=== PATIENT | female | born 1970 | race Asian ===

== ENCOUNTER 2019-02-01 10:53 | Inpatient (IN) | payer OTHER ==
[2019-02-01 11:34] LABS: ADD MAN DIFF? NO
[2019-02-01 11:37] LABS: WHITE BLOOD COUNT 4.6 10^3/ul (4.8-10.8)
[2019-02-01 11:37] LABS: BASOPHILS % 0.2 % (0.0-2.0); EOSINOPHILS # 0.2 10^3/ul (0.0-0.5); EOSINOPHILS % 3.3 % (0.0-7.0); HEMATOCRIT 42.7 % (37.0-47.0); HEMOGLOBIN 14.1 g/dl (12.0-16.0); LYMPHOCYTES % 44.1 % (15.0-51.0); MEAN CORPUSCULAR HEMOGLOBIN 29.4 pg (29.0-33.0); MEAN PLATELET VOLUME 10.4 fl (7.4-10.4); MONOCYTE # 0.2 10^3/ul (0.3-0.9); MONOCYTES % 4.8 % (0.0-11.0); NEUTROPHIL # 2.2 10^3/ul (1.6-7.5); NEUTROPHILS % 47.6 % (39.0-77.0); PLATELET COUNT 230 10^3/UL (140-415); RED CELL DISTRIBUTION WIDTH 12.3 % (11.5-14.5)
[2019-02-01] MEDS ORDERED: ISOSULFAN BLUE 1% 5 ML INJ SC (11:53)
[2019-02-01 11:55] LABS: INR 0.96; PROTIME 12.9 Sec (11.9-14.9)
[2019-02-01 11:56] LABS: ALANINE AMINOTRANSFERASE 16 IU/L (13-69); ALBUMIN 4.7 g/dl (3.3-4.9); ALBUMIN/GLOBULIN RATIO 1.11; ALKALINE PHOSPHATASE 56 IU/L (42-121); ANION GAP 9 (5-13); ASPARTATE AMINO TRANSFERASE 26 IU/L (15-46); BILIRUBIN,INDIRECT 0.5 mg/dl (0-1.1); BILIRUBIN,TOTAL 0.5 mg/dl (0.2-1.3); BLOOD UREA NITROGEN 13 mg/dl (7-20); CALCIUM 9.6 mg/dl (8.4-10.2); CARBON DIOXIDE 30 mmol/L (21-31); CHLORIDE 104 mmol/L (97-110); Estimated GFR > 60 mL/min (>60); GLUCOSE 92 mg/dl (70-220); SODIUM 143 mmol/L (135-144); TOTAL PROTEIN 8.9 g/dl (6.1-8.1)
[2019-02-01] MEDS ORDERED: LORAZEPAM 2 MG INJ IV (12:30)
[2019-02-01] MEDS ORDERED: hydrALAzine 20 MG INJ IV (12:30)
[2019-02-01] MEDS ORDERED: MEPERIDINE 25 MG INJ IV (12:30)
[2019-02-01] MEDS ORDERED: HYDROmorphONE 1 MG/5 ML IV SYRINGE IV ×3 (12:30)
[2019-02-01] MEDS ORDERED: LABETALOL HCL 20MG INJ IV (12:30)
[2019-02-01] MEDS ORDERED: ONDANSETRON 4 MG INJ IV (12:30)
[2019-02-01] MEDS ORDERED: MIDAZOLAM 1 MG/ML 2 ML INJ (12:36)
[2019-02-01] MEDS ORDERED: LIDOCAINE 2% (SDV) 5 ML INJ (12:45)
[2019-02-01] MEDS ORDERED: PROPOFOL 20 ML (12:45)
[2019-02-01] MEDS ORDERED: FENTAnyl 50 MCG/ML VIAL (12:45)
[2019-02-01] MEDS ORDERED: CEFAZOLIN 1 GM INJ (12:47)
[2019-02-01] MEDS ORDERED: PHENYLephrine (100 MCG/ML) 10ML SYG (12:47)
[2019-02-01] MEDS ORDERED: ONDANSETRON 4 MG INJ (12:54)
[2019-02-01] MEDS ORDERED: DEXAMETHASONE 4 MG/ML 5 ML INJ (12:54)
[2019-02-01] MEDS ORDERED: FAMOTIDINE 20 MG INJ (12:54)
[2019-02-01] MEDS ORDERED: HYDROmorphONE 2 MG/ML SYG (13:04)
[2019-02-01] MEDS ORDERED: EPHEDrine SULFATE 50 MG/5 ML SYG IV (13:30)
[2019-02-01] MEDS ORDERED: DIPHENHYDRAMINE 50 MG INJ IV (13:30)
[2019-02-01] MEDS ORDERED: FENTAnyl 50 MCG/ML VIAL IV (13:30)
[2019-02-01] MEDS ORDERED: morphine 2 MG INJ IV (14:30)
[2019-02-01] MEDS: D5W-0.45 NACL + KCL 20 MEQ 1,000 ML IV (16:44)
[2019-02-01] MEDS: ONDANSETRON 4 MG INJ IV (20:42)
[2019-02-01] MEDS: ACETAMINOPHEN 1000MG/100ML IV 100 ML IVPB (21:03)
[2019-02-02] MEDS: D5W-0.45 NACL + KCL 20 MEQ 1,000 ML IV ×3 (00:40→08:36)
[2019-02-02 05:36] LABS: ADD MAN DIFF? NO; HEMATOCRIT 35.9 % (37.0-47.0); HEMOGLOBIN 11.9 g/dl (12.0-16.0); LYMPHOCYTES # 1.2 10^3/ul (0.8-2.9); LYMPHOCYTES % 22.3 % (15.0-51.0); MEAN CORPUSCULAR HEMOGLOBIN 29.2 pg (29.0-33.0); MEAN CORPUSCULAR HGB CONC 33.1 g/dl (32.0-37.0); MEAN CORPUSCULAR VOLUME 88.2 fl (82.0-101.0); MEAN PLATELET VOLUME 10.7 fl (7.4-10.4); MONOCYTE # 0.3 10^3/ul (0.3-0.9); MONOCYTES % 5.2 % (0.0-11.0); NEUTROPHIL # 3.9 10^3/ul (1.6-7.5); NEUTROPHILS % 72.1 % (39.0-77.0); PLATELET COUNT 204 10^3/UL (140-415); RED BLOOD COUNT 4.07 10^6/ul (4.20-5.40); RED CELL DISTRIBUTION WIDTH 12.5 % (11.5-14.5)
[2019-02-02 05:36] LABS: WHITE BLOOD COUNT 5.4 10^3/ul (4.8-10.8)
== END 2019-02-02 17:05 | disposition home or self-care (01) | DRG 581 ==
LOC: SDS 10:53 → REC 14:19 → MS1 16:35
PROC: 0HTV0ZZ Resection of Bilateral Breast, Open Approach (ICD-10-PCS; principal; 2019-02-01 12:29)
PROC: 07B60ZX Excision of Left Axillary Lymphatic, Open Approach, Diagnostic (ICD-10-PCS; 2019-02-01 12:29)
DX: C50.912 Malignant neoplasm of unspecified site of left female breast (principal); Z40.01 Encounter for prophylactic removal of breast; Z17.0 Estrogen receptor positive status [ER+]; G89.18 Other acute postprocedural pain
CPT/HCPCS: 80053; 84703; 85025; 85610; 85730; 88309